=== PATIENT | male | born 1975 | race Two or more races ===

== ENCOUNTER 2024-12-01 21:44 | Inpatient (IN) | payer OTHER ==
[~2024-12-01] VITALS: Ht 175.3 cm; Wt 71.7 kg
[2024-12-01] MEDS ORDERED: 0.9 % SODIUM CHLORIDE 500 ML IV SCH (22:15)
[2024-12-01 22:27] LABS: BASO % 0.5 % (0.1-1.2); EOS # 0.15 (0.04-0.54); EOS % 2.3 % (0.7-7.0); LYMPH # 2.62 (1.18-3.74); LYMPH % 40.7 % (19.3-53.1); MEAN PLATELET VOLUME 10.40 fl (9.4-12.4); MONO # 0.28 (0.24-0.82); MONO % 4.4 % (4.7-12.5); NEUT # 3.34 (1.56-6.13); NEUT % 51.9 % (34.0-71.1); RED CELL DISTRIBUTION WIDTH 13.0 % (11.6-14.4)
[2024-12-01 22:46] LABS: INR 1.01
[2024-12-01 22:51] LABS: ALT/SGPT 22.0 U/L (12-78); AST/SGOT 16.0 U/L (15-37); BILIRUBIN TOTAL 0.36 mg/dL (0.3-1.2); BUN CREA RATIO 15.0 (7.0-25.0); CREATININE SERUM 0.97 mg/dL (0.70-1.30); GFR 81.92; GLOBULINA 2.8 G/DL (2.4-3.5); GLUCOSE FASTING 115.0 mg/dL (65-100); OSMOLALITY SERUM 285.0 MOSM/KG (275-295)
[2024-12-02] MEDS ORDERED: TICAGRELOR 90 MG TABLET PO ONE (00:30)
[2024-12-02] MEDS ORDERED: NITROGLYCERIN IN 5 % DEXTROSE 50 MG/250 ML KIT IV SCH (01:00)
[2024-12-02] MEDS ORDERED: ACETAMINOPHEN 500 MG GEL..CAP PO PRN (04:00)
[2024-12-02] MEDS ORDERED: ONDANSETRON HCL 2 MG/ML VIAL IV PRN (07:45)
[2024-12-02] MEDS ORDERED: LOSARTAN POTASSIUM 25 MG TABLET PO SCH (09:00)
[2024-12-02] MEDS ORDERED: ASPIRIN 325 MG TABLET PO SCH (09:00)
[2024-12-02] MEDS ORDERED: ENOXAPARIN SODIUM 80 MG/0.8 ML SYRINGE SUBCUTANEO SCH (09:00)
[2024-12-02] MEDS ORDERED: ATORVASTATIN CALCIUM 40 MG TABLET PO SCH (09:00)
[2024-12-02] MEDS ORDERED: METOPROLOL SUCCINATE 25 MG TAB.SR.24H PO SCH (09:00)
[2024-12-02 09:53] LABS: COVID-19 AG NEGATIVE (NEGATIVE)
[2024-12-02] MEDS ORDERED: NITROGLYCERIN IN 5 % DEXTROSE 250 ML IV SCH (10:00)
[2024-12-02 12:13] VITALS: BP 134/77; O2SAT 98
[2024-12-02 19:03] VITALS: BP 101/57
[2024-12-03 01:10] VITALS: BP 116/72
[2024-12-03] MEDS ORDERED: ISOSORBIDE MONONITRATE 30 MG TABLET PO SCH (09:00)
[2024-12-03 09:16] VITALS: BP 114/72; O2SAT 99
[2024-12-03 18:01] VITALS: BP 121/74; O2SAT 100
[2024-12-04 01:38] VITALS: BP 98/62; O2SAT 99
[2024-12-04 09:56] VITALS: BP 108/68; O2SAT 99
== END 2024-12-04 14:43 | disposition home or self-care (01) | DRG 312 ==
LOC: ER 21:44 → MEDI 12-02 07:37 → MEDJ 12-02 07:37
PROVIDERS: Emergency Medicine; General Practice; ADMIT Internal Medicine; ATTEND Internal Medicine
PROC: 4A12X4Z Monitoring of Cardiac Electrical Activity, External Approach (ICD-10-PCS; principal; 2024-12-02)
PROC: B020ZZZ Computerized Tomography (CT Scan) of Brain (ICD-10-PCS; 2024-12-02)
PROC: B246ZZZ Ultrasonography of Right and Left Heart (ICD-10-PCS; 2024-12-02)
DX: I95.1 Orthostatic hypotension (principal); R42 Dizziness and giddiness; R53.81 Other malaise; F10.90 Alcohol use, unspecified, uncomplicated